=== PATIENT | female | born 1945 | race Caucasian/White ===

== ENCOUNTER 2017-06-15 20:46 | Inpatient (IN) | payer OTHER, BC ==
--- NOTE | 2017-06-15 20:56 | PDOC ---
History of Present Illness <Mariya Cardoza - Last Filed: 06/15/17 21:43> - History of Present Illness Initial Comments: 06/15/17 21:12 Mr. Umaña is a 72 yo male w/ pmh of HLD, HTN, and thyroid removal who presents c/o a 1 day history of difficulty breathing. She reports that she started a new medication yesterday for a UTI (bactrim) and noticed some skin itching after it for which she took a benadryl. She took another bactrim this AM and this is when the difficulty breathing started. She took another benadryl this AM and noticed her symptoms increase throughout the day. She presents tonight as she is now having difficutly swallowing as well. The patient denies chest pain, headache and dizziness. Denies fever, chills, nausea, vomit, diarrhea and constipation. Allergies: No drug allergies known previously. <Jono Connor - Last Filed: 06/15/17 21:56> - General Chief Complaint: Allergic Reaction Stated Complaint: DIFF BREATHING- ALLERGIC REACTION Time Seen by Provider: 06/15/17 20:56 Past History <Mariya Cardoza - Last Filed: 06/15/17 21:43> - Past Medical History COPD: Yes Diabetes: Yes GI Disorders: Yes (ACID REFLUX) HTN: Yes Hypercholesterolemia: Yes - Surgical History Abdominal Surgery: Yes Appendectomy: Yes Cholecystectomy: Yes - Suicide/Smoking/Psychosocial Hx Smoking History: Former smoker Have you smoked in the past 12 months: No If you are a former smoker, when did you quit?: 2008 Information on smoking cessation initiated: No Hx Alcohol Use: No Drug/Substance Use Hx: No Substance Use Type: None <Jono Connor - Last Filed: 06/15/17 21:56> - Past Medical History Allergies/Adverse Reactions: Allergies Allergy/AdvReac Type Severity Reaction Status Date / Time No Known Allergies Allergy Verified 06/15/17 20:51 Home Medications: Ambulatory Orders Cholecalciferol (Vitamin D3) [Vitamin D] 2,000 unit PO DAILY 07/30/13 Esomeprazole Mag Trihydrate [Nexium] 20 mg PO DAILY 07/30/13 Folic Acid - 1 mg PO DAILY 07/30/13 Meclizine HCl [Antivert -] 25 mg PO PRN 07/30/13 Metformin HCl [Glucophage -] 500 mg PO DAILY 07/30/13 Pitavastatin Calcium [Livalo] 2 mg PO DAILY 07/30/13 Ubidecarenone/Vitamin E [Co Q-10 50 mg Softgel] 1 each PO DAILY 07/30/13 Albuterol Sulfate [Proventil HFA Inhaler -] 1 - 2 inh PO TID 04/22/16 Losartan Potassium 100 mg PO DAILY 04/22/16 Diphenhydramine [Benadryl -] 50 mg PO ASDIR 06/15/17 Risedronate Sodium [Actonel (Monthly)] 150 mg PO Q30D 06/15/17 Review of Systems - Review of Systems Comments:: 06/15/17 21:17 GENERAL/CONSTITUTIONAL: No fever or chills. No weakness. HEAD, EYES, EARS, NOSE AND THROAT: +Says she feels like her throat is closing up CARDIOVASCULAR: No chest pain RESPIRATORY: +Some shortness of breath described GASTROINTESTINAL: No nausea, vomiting, diarrhea or constipation. GENITOURINARY: No dysuria, frequency, or change in urination. MUSCULOSKELETAL: No joint or muscle swelling or pain. No neck or back pain. SKIN: No rash NEUROLOGIC: No headache, vertigo, loss of consciousness, or change in strength/ sensation. ENDOCRINE: No increased thirst. No abnormal weight change HEMATOLOGIC/LYMPHATIC: No anemia, easy bleeding, or history of blood clots. ALLERGIC/IMMUNOLOGIC: +itching / rash described to arms/face <Jono Connor - Last Filed: 06/15/17 21:56> *Physical Exam - Vital Signs Last Vital Signs Temp Pulse Resp BP Pulse Ox 98 F 90 18 142/70 100 06/15/17 20:52 06/15/17 20:52 06/15/17 20:52 06/15/17 20:52 06/15/17 21:00 <Mariya Cardoza - Last Filed: 06/15/17 21:43> - Vital Signs Last Vital Signs Temp Pulse Resp BP Pulse Ox 98 F 90 18 142/70 98 06/15/17 20:52 06/15/17 20:52 06/15/17 20:52 06/15/17 20:52 06/15/17 20:52 - Physical Exam Comments: 06/15/17 21:19 GENERAL: Awake, alert, and fully oriented, in no acute distress HEAD: No signs of trauma, normocephalic, atraumatic EYES: PERRLA, EOMI, sclera anicteric, conjunctiva clear ENT: +Oropharynx appears swollen and erythematous NECK: Normal ROM, supple, no lymphadenopathy, JVD, or masses LUNGS: +Tightness noted to lung bases bilaterally HEART: Regular rate and rhythm, normal S1 and S2, no murmurs, rubs or gallops, peripheral pulses normal and equal bilaterally. ABDOMEN: Soft, nontender, normoactive bowel sounds. No guarding, no rebound. No masses EXTREMITIES: Normal inspection, Normal range of motion, no edema. No clubbing or cyanosis. NEUROLOGICAL: Cranial nerves II through XII grossly intact. Normal speech, normal gait, no focal sensorimotor deficits SKIN: Hives noted to arms bilaterally <Jono Connor - Last Filed: 06/15/17 21:56> ED Treatment Course - LABORATORY CBC & Chemistry Diagram: 06/15/17 21:00 06/15/17 21:00 - ADDITIONAL ORDERS Additional order review: 06/15/17 21:00 RBC 4.36 MCV 88.6 MCHC 34.3 RDW 12.7 MPV 8.4 Neutrophils % 66.8 Lymphocytes % 23.7 Monocytes % 7.0 Eosinophils % 1.9 Basophils % 0.6 - Medications Given in the ED: ED Medications Discontinued Medications Generic Name Dose Route Start Last Admin Trade Name Freq PRN Reason Stop Dose Admin Diphenhydramine HCl 50 mg 06/15/17 21:04 06/15/17 21:16 Benadryl Injection - IVPUSH 06/15/17 21:05 50 mg ONCE ONE Administration Methylprednisolone Sodium Succinate 125 mg 06/15/17 21:04 06/15/17 21:16 Solu-Medrol - IVPUSH 06/15/17 21:05 125 mg ONCE ONE Administration Ranitidine HCl 150 mg 06/15/17 21:06 06/15/17 21:16 Zantac Oral Solution - PO 06/15/17 21:07 150 mg ONCE ONE Administration <Mariya Cardoza - Last Filed: 06/15/17 21:43> - LABORATORY CBC & Chemistry Diagram: 06/15/17 21:00 06/15/17 21:00 <Jono Connor - Last Filed: 06/15/17 21:56> Medical Decision Making - Medical Decision Making 06/15/17 21:20 Patient presents w/ symptoms concerning for allergic reaction to proscribed Bactrim. Solumedrol / Benadryl given with some relief. Will admit for observation overnight. <Jono Connor - Last Filed: 06/15/17 21:56> *DC/Admit/Observation/Transfer - Discharge Dispostion Admit: Yes <Mariya Cardoza - Last Filed: 06/15/17 21:43> <Jono Connor - Last Filed: 06/15/17 21:56> Diagnosis at time of Disposition: Angioedema Qualifiers: Encounter type: initial encounter Qualified Code(s): T78.3XXA - Angioneurotic edema, initial encounter - Referrals Referrals: Sujit Montes [Non Staff, Medical] -
[2017-06-15] MEDS ORDERED: methylPREDNISolone NA SUCC 125 MG/2 ML VIAL IVPUSH ONE (21:04)
[2017-06-15] MEDS ORDERED: methylPREDNISolone NA SUCC 125 MG/2 ML VIAL ONE ×2 (21:05→21:06)
[2017-06-15] MEDS ORDERED: RANITIDINE HCL 150 MG/10 ML UNIT-DOSE PO ONE (21:06)
[2017-06-15] MEDS ORDERED: RANITIDINE HCL 150 MG TABLET (FP) ONE (21:17)
[2017-06-15 21:19] LABS: BASOPHIL 0.6 % (0-2.0); EOSINOPHIL 1.9 % (0-4.5); MCH 30.4 pg (25.7-33.7); MCHC 34.3 g/dl (32.0-36.0); MEAN CELL VOLUME 88.6 fl (80-96); MEAN PLT VOLUME 8.4 fl (7.5-11.1); NEUTROPHILS 66.8 % (42.8-82.8); PLATELET COUNT 197 K/MM3 (134-434); RDW 12.7 % (11.6-15.6); WHITE BLOOD COUNT 8.1 K/mm3 (4.0-10.0)
--- NOTE | 2017-06-15 21:33 | PDOC ---
Attending Attestation - Resident Resident Name: Jono Connor - ED Attending Attestation I have performed the following: I have examined & evaluated the patient, The case was reviewed & discussed with the resident, I agree w/resident's findings & plan - HPI HPI: 06/15/17 21:31 Pt took a 2nd bactrim this AM and felt her throat closing; she has been dealing with it hat home with benadryl; tonight she felt worsening swelling, so took a benadryl at 7PM and came to the ER. Pt has no voice changes and she feels well otherwise. - Physicial Exam PE: 06/15/17 21:32 Right soft palate swelling. Vital signs normal. - Medical Decision Making 06/15/17 21:32 Basic labs; benadryl and prednisone IV; zantac. Admit to Dr. Tejada for observation; she is aware and she is requesting another dose of solumedrol in 6 hrs. <Mariya Cardoza - Last Filed: 06/15/17 21:31> - Medical Decision Making 06/15/17 21:43 Jyoti paged via phone answering service. Dr. Tejada responded to the page and the patients case was discussed. Patient to be admitted under observation. <Aga Méndez - Last Filed: 06/15/17 21:44>
[2017-06-15 22:03] LABS: ALBUMIN 3.6 g/dl (3.4-5.0); ANION GAP 7 (8-16); BILIRUBIN,TOTAL 0.2 mg/dL (0.2-1.0); CALCIUM 8.5 mg/dL (8.5-10.1); CO2 26 mmol/L (21-32); CREATININE 1.1 mg/dL (0.55-1.02); GLUCOSE,RANDOM 146 mg/dL (74-106); SGOT/AST 15 U/L (15-37); SGPT/ALT 20 U/L (12-78); TOT PROT 6.7 g/dl (6.4-8.2)
[2017-06-15 22:04] LABS: ALK PHOS 30 U/L (45-117)
--- NOTE | 2017-06-15 23:35 | HP ---
Admitting History and Physical - Admission Chief Complaint: difficulty swallowing / diffuse itching History of Present Illness: 72 yo female w/ pmh of HLD, HTN, and thyroid removal who presents c/o a 1 day history of difficulty breathing. She reports that she started a new medication yesterday for a UTI (bactrim) and noticed some skin itching after it for which she took a benadryl. She took another bactrim this AM with re occurance of itching followed by difficulty breathing. She took another benadryl this AM and noticed her symptoms did not resolve but increased throughout the day. She presents tonight as she is now having difficultly swallowing as well. The patient denies chest pain, headache and dizziness. Denies fever, chills, nausea, vomit, diarrhea and constipation. She reports no previous hx of medical allergies History Source: Patient, Medical Record, Caregiver Limitations to Obtaining History: No Limitations - Past Medical History Cardiovascular: Yes: HTN, Hyperlipdemia Reproductive: Yes: Postmenopausal ...: No - Smoking History Smoking history: Former smoker Have you smoked in the past 12 months: No If you are a former smoker, when did you quit?: 2009 - Alcohol/Substance Use Hx Alcohol Use: No - Social History Usual Living Arrangement: Yes: With Spouse, With Significant Other ADL: Independent History of Recent Travel: No Home Medications - Allergies Allergies/Adverse Reactions: Allergies Allergy/AdvReac Type Severity Reaction Status Date / Time No Known Allergies Allergy Verified 06/15/17 20:51 - Home Medications Home Medications: Ambulatory Orders Cholecalciferol (Vitamin D3) [Vitamin D] 2,000 unit PO DAILY 07/30/13 Esomeprazole Mag Trihydrate [Nexium] 20 mg PO DAILY 07/30/13 Folic Acid - 1 mg PO DAILY 07/30/13 Meclizine HCl [Antivert -] 25 mg PO PRN 07/30/13 Metformin HCl [Glucophage -] 500 mg PO DAILY 07/30/13 Pitavastatin Calcium [Livalo] 2 mg PO DAILY 07/30/13 Ubidecarenone/Vitamin E [Co Q-10 50 mg Softgel] 1 each PO DAILY 07/30/13 Albuterol Sulfate [Proventil HFA Inhaler -] 1 - 2 inh PO TID 04/22/16 Losartan Potassium 100 mg PO DAILY 10/10/16 Diphenhydramine [Benadryl -] 50 mg PO ASDIR 06/15/17 Risedronate Sodium [Actonel (Monthly)] 150 mg PO Q30D 06/15/17 Sulfamethoxazole/Trimethoprim [Bactrim Ds -] 1 tab PO BID 06/15/17 Review of Systems - Review of Systems Constitutional: denies: Chills, Fever, Malaise, Weakness HENT: reports: Difficult Swallowing, Mouth Swelling. denies: Nasal Congestion, Throat Pain Neck: denies: Decreased ROM, Stiffness, Swollen Glands Cardiovascular: denies: Chest Pain, Edema, Palpitations Respiratory: denies: Cough, SOB on Exertion, Wheezing Gastrointestinal: reports: No Symptoms Genitourinary: reports: No Symptoms Breasts: reports: No Symptoms Reported Musculoskeletal: reports: No Symptoms Integumentary: reports: No Symptoms Neurological: reports: No Symptoms, Syncope. denies: Change in Speech, Unsteady Gait, Weakness Endocrine: reports: No Symptoms Hematology/Lymphatic: reports: No Symptoms Physical Examination Vital Signs: Vital Signs Temperature 98.1 F 06/15/17 22:27 Pulse Rate 82 06/15/17 22:27 Respiratory Rate 20 06/15/17 22:27 Blood Pressure 138/68 06/15/17 22:27 O2 Sat by Pulse Oximetry (%) 98 06/15/17 22:27 Constitutional: Yes: Cachectic, Mild Distress. No: Diaphoresis Eyes: Yes: WNL HENT: No: Drooling, Hoarseness Neck: Yes: Supple, Trachea Midline Cardiovascular: Yes: Regular Rate and Rhythm Respiratory: Yes: CTA Bilaterally. No: Accessory Muscle Use, Rhonchi, Stridor, Wheezes Gastrointestinal: Yes: Normal Bowel Sounds, Abdomen, Obese Renal/: Yes: WNL Breast(s): Yes: WNL Musculoskeletal: Yes: WNL Edema: No Peripheral Pulses: Left Radial: 1+, Right Radial: 1+, Left Doralis Pedis: 1+, Right Dorsalis Pedis: 1+, Left Femoral: 1+, Right Femoral: 1+ Integumentary: Yes: WNL Neurological: Yes: WNL, Alert, Oriented ...Motor Strength: WNL Psychiatric: Yes: Alert, Oriented Labs: CBC, BMP 06/15/17 21:00 06/15/17 21:00 Problem List - Problems (1) Angioedema Assessment/Plan: probably due to sulfa Code(s): T78.3XXA - ANGIONEUROTIC EDEMA, INITIAL ENCOUNTER Qualifiers: Encounter type: initial encounter Qualified Code(s): T78.3XXA - Angioneurotic edema, initial encounter (2) HTN (hypertension) Code(s): I10 - ESSENTIAL (PRIMARY) HYPERTENSION (3) Obesity (BMI 30-39.9) Code(s): E66.9 - OBESITY, UNSPECIFIED (4) Hyperlipemia Code(s): E78.5 - HYPERLIPIDEMIA, UNSPECIFIED
[2017-06-15] MEDS ORDERED: diphenhydrAMINE HCL 25 MG CAPSULE (FP) PO PRN (23:55)
[2017-06-16 01:09] VITALS: BMI 30.2
[2017-06-16] MEDS: DEXAMETHASONE SOD PHOSPHATE 4 MG/1 ML VIAL IVPUSH SCH ×3 (02:00→17:43)
[2017-06-16] MEDS ORDERED: methylPREDNISolone NA SUCC 125 MG/2 ML VIAL IVPUSH ONE (03:30)
[2017-06-16] MEDS: PANTOPRAZOLE 20 MG TABLET (FP) PO SCH ×2 (09:02→20:59)
--- NOTE | 2017-06-16 12:53 | EKG ---
Test Reason : Blood Pressure : / mmHG Vent. Rate : 066 BPM Atrial Rate : 066 BPM P-R Int : 178 ms QRS Dur : 084 ms QT Int : 412 ms P-R-T Axes : 040 -14 -01 degrees QTc Int : 431 ms NORMAL SINUS RHYTHM INFERIOR INFARCT , AGE UNDETERMINED ABNORMAL ECG WHEN COMPARED WITH ECG OF 30-JUL-2013 14:39, LIKELY NO SIGNIFICANT CHANGES WERE SEEN Confirmed by JAYNE NAIR MD ([id number]) on 06/16/2017 12:53:12 PM Referred By: Confirmed By:JAYNE NAIR MD
--- NOTE | 2017-06-16 21:46 | PN ---
Progress Note (short form) - Note Progress Note: indu seen and examined in her room family at bedside patient reports episode of itching followed by difficulty breathing late this afternoon Sx subsided after IV medication ( decadron), and itching alliviated with benadryl Vital Signs Period Temp Pulse Resp BP Sys/Hogan Pulse Ox Last 24 Hr 98.1 F-99.8 F 64-95 20-20 131-153/57-79 96-98 no difficulty breathing at this time comfortable last dose of decadron 2 hrs ago neck no stridor heart S1/S2 regular lungs clear bilat abd soft non tender obese ext no edema no calf tenderness CBC, BMP 06/15/17 21:00 06/15/17 21:00 Active Medications Dexamethasone Sodium Phosphate (Decadron Injection -) 4 mg IVPUSH Q8H-IV JARRED Last Admin: 06/16/17 17:43 Dose: 4 mg Diphenhydramine HCl (Benadryl -) 50 mg PO Q4H PRN PRN Reason: FOR ITCHING Pantoprazole Sodium (Protonix -) 20 mg PO BID JARRED Last Admin: 06/16/17 20:59 Dose: 20 mg # angioedema allergic reaction to sulfa reaction subsided with steroids re occurance late this afternoon will continue with decadron /PPi / benadryl today patient and family instructed in need and use of epipen after d/c # HTN will continue meds currently Bp controlled
[2017-06-17] MEDS: DEXAMETHASONE SOD PHOSPHATE 4 MG/1 ML VIAL IVPUSH SCH ×3 (02:31→17:36)
[2017-06-17] MEDS: diphenhydrAMINE HCL 25 MG CAPSULE (FP) PO PRN (05:49)
[2017-06-17 07:31] LABS: BASOPHIL 0.4 % (0-2.0); MCHC 33.8 g/dl (32.0-36.0); MEAN CELL VOLUME 88.6 fl (80-96); MEAN PLT VOLUME 8.7 fl (7.5-11.1); NEUTROPHILS 92.8 % (42.8-82.8); PLATELET COUNT 228 K/MM3 (134-434); RDW 12.7 % (11.6-15.6); WHITE BLOOD COUNT 17.7 K/mm3 (4.0-10.0)
[2017-06-17 08:16] LABS: ANION GAP 10 (8-16); CALCIUM 9.8 mg/dL (8.5-10.1); CO2 25 mmol/L (21-32); GLUCOSE,RANDOM 199 mg/dL (74-106)
[2017-06-17] MEDS: PANTOPRAZOLE 20 MG TABLET (FP) PO SCH ×2 (09:09→21:00)
[2017-06-17] MEDS: LEVOFLOXACIN 500 MG TABLET (FP) PO SCH (10:44)
--- NOTE | 2017-06-17 21:18 | PN ---
Progress Note (short form) - Note Progress Note: patient seen and examined in her room reports episodes of itching overnight and again early this am required benadryl this am comfortable recent dose of decadron given explained to patient need to continue to observe in view of persistent re occureance continue to hold all other meds Vital Signs Period Temp Pulse Resp BP Sys/Hogan Pulse Ox Last 24 Hr 98.1 F-99.8 F 64-95 20-20 131-153/57-79 96-98 no difficulty breathing at this time comfortable last dose of decadron 1 hrs ago neck no stridor heart S1/S2 regular lungs clear bilat abd soft non tender obese ext no edema no calf tenderness CBC, BMP 06/17/17 05:22 06/17/17 05:22 Active Medications Dexamethasone Sodium Phosphate (Decadron Injection -) 4 mg IVPUSH Q8H-IV JARRED Last Admin: 06/16/17 17:43 Dose: 4 mg Diphenhydramine HCl (Benadryl -) 50 mg PO Q4H PRN PRN Reason: FOR ITCHING Pantoprazole Sodium (Protonix -) 20 mg PO BID JARRED Last Admin: 06/16/17 20:59 Dose: 20 mg # angioedema allergic reaction to sulfa reaction subsided with steroids re occurance overnight in spite of 24 hrs of IV decadron will continue with decadron /PPi / benadryl today # HTN will continue meds currently Bp controlled # [facility] ordered Levaquin PO for patient today already given no U/A done at this time # elevated WBC due to steroids remains afebrile Problem List - Problems (1) Angioedema Code(s): T78.3XXA - ANGIONEUROTIC EDEMA, INITIAL ENCOUNTER Qualifiers: Encounter type: initial encounter Qualified Code(s): T78.3XXA - Angioneurotic edema, initial encounter (2) HTN (hypertension) Code(s): I10 - ESSENTIAL (PRIMARY) HYPERTENSION (3) Obesity (BMI 30-39.9) Code(s): E66.9 - OBESITY, UNSPECIFIED (4) Hyperlipemia Code(s): E78.5 - HYPERLIPIDEMIA, UNSPECIFIED
[2017-06-18] MEDS: diphenhydrAMINE HCL 25 MG CAPSULE (FP) PO PRN (01:27)
[2017-06-18] MEDS: DEXAMETHASONE SOD PHOSPHATE 4 MG/1 ML VIAL IVPUSH SCH ×2 (03:07→09:09)
[2017-06-18 07:34] LABS: ANION GAP 10 (8-16); CALCIUM 9.5 mg/dL (8.5-10.1); CO2 27 mmol/L (21-32); CREATININE 1.1 mg/dL (0.55-1.02); GLUCOSE,RANDOM 232 mg/dL (74-106)
[2017-06-18] MEDS: LEVOFLOXACIN 500 MG TABLET (FP) PO SCH (09:09)
[2017-06-18] MEDS: PANTOPRAZOLE 20 MG TABLET (FP) PO SCH (09:09)
--- NOTE | 2017-06-18 12:15 | DS ---
Physical Examination Vital Signs: Vital Signs Temperature 97.8 F 06/18/17 09:00 Pulse Rate 65 06/18/17 09:00 Respiratory Rate 18 06/18/17 09:00 Blood Pressure 177/68 06/18/17 09:00 O2 Sat by Pulse Oximetry (%) 96 06/18/17 09:00 Findings/Remarks: 72 yo female w/ pmh of HLD, HTN, and thyroid removal who presents c/o a 1 day history of difficulty breathing. She reports that she started a new medication yesterday for a UTI (bactrim) and noticed some skin itching after it for which she took a benadryl. She took another bactrim this AM with re occurance of itching followed by difficulty breathing. She took another benadryl this AM and noticed her symptoms did not resolve but increased throughout the day. She presents tonight as she is now having difficultly swallowing as well. The patient denied chest pain, headache and dinies fever, chills, nausea, vomit , diarrhea and constipation. She reports no previous hx of medical allergies Patient was admitted treated with IV decadron and benadryl PRN- contniued to have break trough sx for 48 hours --- Decadron d/c'd last night reports asymptomatic, had benadryl late last night for itching. Thia am sitting in chair comfortable no complaints. Instructed on medications and follow up at the office. She understands. Constitutional: Yes: Well Nourished, No Distress, Calm Eyes: Yes: WNL HENT: Yes: WNL, Atraumatic, Normocephalic Neck: Yes: WNL, Supple, Trachea Midline Cardiovascular: Yes: WNL, Regular Rate and Rhythm Respiratory: Yes: WNL, Regular, CTA Bilaterally Gastrointestinal: Yes: WNL, Normal Bowel Sounds, Soft Renal/: Yes: WNL Breast(s): Yes: WNL Musculoskeletal: Yes: WNL Extremities: Yes: WNL Edema: No Peripheral Pulses: Left Radial: 2+, Right Radial: 2+, Left Doralis Pedis: 2+, Right Dorsalis Pedis: 2+, Left Femoral: 2+, Right Femoral: 2+ Integumentary: Yes: WNL Neurological: Yes: Alert, Oriented ...Motor Strength: WNL Psychiatric: Yes: Alert, Oriented Labs: CBC, BMP 06/17/17 05:22 06/18/17 06:45 Discharge Summary Reason For Visit: ANGIOEDEMA Current Active Problems Angioedema (Acute) attributed to BACTRIM HTN (hypertension) (Acute) Hyperlipemia (Acute) Obesity (BMI 30-39.9) (Acute) Hospital Course: Patient was admitted and treated with IV decadron and Benadryl. She had several episodes of re-occurance during inital admission but subsided with PO benadryl. At time of d/c discussed use of epi-pen ( grand daughter "has one" - she knows "about it") instructed on when and how to use it. Condition: Improved - Instructions Referrals: Sujit Montes [Primary Care Provider] - Disposition: HOME - Home Medications Comprehensive Discharge Medication List: Ambulatory Orders ALLERGY TO BACTRIM __angioedema Cholecalciferol (Vitamin D3) [Vitamin D] 2,000 unit PO DAILY 07/30/13 Esomeprazole Mag Trihydrate [Nexium] 20 mg PO DAILY 07/30/13 Folic Acid - 1 mg PO DAILY 07/30/13 Meclizine HCl [Antivert -] 25 mg PO PRN 07/30/13 Metformin HCl [Glucophage -] 500 mg PO DAILY 07/30/13 Pitavastatin Calcium [Livalo] 2 mg PO DAILY 07/30/13 Ubidecarenone/Vitamin E [Co Q-10 50 mg Softgel] 1 each PO DAILY 07/30/13 Albuterol Sulfate [Proventil HFA Inhaler -] 1 - 2 inh PO TID 04/22/16 Losartan Potassium 100 mg PO DAILY 04/22/16 Diphenhydramine [Benadryl -] 50 mg PO ASDIR 06/15/17 Risedronate Sodium [Actonel (Monthly)] 150 mg PO Q30D 06/15/17
[2017-06-18] MEDS ORDERED: ACETAMINOPHEN 500 MG TABLET (FP) PO ONE (12:45)
[2017-06-18 13:18] VITALS: BP 166/86; PULSE 73; TEMP 98.4
== END 2017-06-18 13:23 | disposition home or self-care (01) | DRG 916 ==
LOC: JER 20:46 → UNDOADMOB 21:43 → JERBED 21:43 → INTOOBSV 21:43 → JERBED 22:52 → J4W 22:52 → OBSVTOIN 06-16 11:30
PROVIDERS: ADMIT Family Medicine; ATTEND Family Medicine
DX: T78.3XXA Angioneurotic edema, initial encounter (principal); N39.0 Urinary tract infection, site not specified; I10 Essential (primary) hypertension; E78.5 Hyperlipidemia, unspecified; E11.9 Type 2 diabetes mellitus without complications; Z79.84 Long term (current) use of oral hypoglycemic drugs; Z87.891 Personal history of nicotine dependence; E66.9 Obesity, unspecified; Z68.30 Body mass index [BMI] 30.0-30.9, adult; T37.0X5A Adverse effect of sulfonamides, initial encounter
CPT/HCPCS: 36415; 70360-TC; 71020-TC; 80048; 80053; 85025; 93005; 93010; 99282-25; G0378

== ENCOUNTER 2017-06-20 21:50 | Emergency (ER) | payer OTHER, BC ==
--- NOTE | 2017-06-20 21:54 | PDOC ---
Rapid Medical Evaluation Chief Complaint: Shortness of Breath Time Seen by Provider: 06/20/17 21:53 Medical Evaluation: Allergies Allergy/AdvReac Type Severity Reaction Status Date / Time No Known Allergies Allergy Verified 06/15/17 20:51 06/20/17 21:53 I have performed a brief in-person evaluation of this patient. The patient presents with a chief complain of: SOB x1 hour with back pruritis WAS ADMITTED FOR ANGIOEDEMA. DISCHARGED [id number] Took benadryl 50mg at 2000hrs Similar episode x5d ago for allergic rxn from sulfa med Pertinent physical exam findings: L/S CTAB pulse ox:98% I have ordered the following: CXR The patient will proceed to the ED for further evaluation. Discharge Disposition - Referrals Referrals: Sujit Montes [Primary Care Provider] - - Patient Instructions - Post Discharge Activity
[2017-06-20 21:55] VITALS: BP 179/64; PULSE 66; TEMP 97.7; BMI 28.3
[2017-06-20] MEDS ORDERED: methylPREDNISolone NA SUCC 125 MG/2 ML VIAL IVPB ONE (22:21)
[2017-06-20] MEDS ORDERED: FAMOTIDINE 20 MG/50 ML IVPB 20 MG/50 ML MG IVPB ONE ×2 (22:21→22:30)
[2017-06-20] MEDS ORDERED: methylPREDNISolone NA SUCC 125 MG/2 ML VIAL ONE (22:30)
--- NOTE | 2017-06-20 22:31 | PDOC ---
History of Present Illness <Kong Hough - Last Filed: 06/21/17 00:32> - History of Present Illness Initial Comments: 06/20/17 22:31 72 F with HLD, HTN, recent admission for allergic reaction, presenting to ER with itchiness and difficulty swallowing. Her symptoms began last Friday after taking Bactrim for a UTI. On Friday, she began to have severe hives and difficulty swallowing. She came to the ER, where she was treated for allergic reaction and admitted. Her symptoms subsided completely upon discharge 3 days ago. However, today shortly after dinner, she began to develop itchiness in her arms and back again. She denies seeing any hives. She also notes that she feels like it is difficult for her to swallow. Denies any SOB. Denies lip or tongue swelling. <Hayden Ivy - Last Filed: 06/21/17 01:55> - General Chief Complaint: Shortness of Breath Stated Complaint: ALLERGIC REACTION/DIFF BREATHING Time Seen by Provider: 06/20/17 21:53 Past History <Kong Hough - Last Filed: 06/21/17 00:32> - Past Medical History COPD: Yes Diabetes: Yes GI Disorders: Yes (ACID REFLUX) HTN: Yes Hypercholesterolemia: Yes - Surgical History Abdominal Surgery: Yes Appendectomy: Yes Cholecystectomy: Yes - Suicide/Smoking/Psychosocial Hx Smoking History: Never smoked Have you smoked in the past 12 months: No If you are a former smoker, when did you quit?: 2008 Information on smoking cessation initiated: No Hx Alcohol Use: No Drug/Substance Use Hx: No Substance Use Type: None <Hayden Ivy - Last Filed: 06/21/17 01:55> - Past Medical History Allergies/Adverse Reactions: Allergies Allergy/AdvReac Type Severity Reaction Status Date / Time No Known Allergies Allergy Verified 06/20/17 21:55 Home Medications: Ambulatory Orders Cholecalciferol (Vitamin D3) [Vitamin D] 2,000 unit PO DAILY 07/30/13 Esomeprazole Mag Trihydrate [Nexium] 20 mg PO DAILY 07/30/13 Folic Acid - 1 mg PO DAILY 07/30/13 Meclizine HCl [Antivert -] 25 mg PO PRN 07/30/13 Pitavastatin Calcium [Livalo] 2 mg PO DAILY 07/30/13 Ubidecarenone/Vitamin E [Co Q-10 50 mg Softgel] 1 each PO DAILY 07/30/13 Albuterol Sulfate [Proventil HFA Inhaler -] 1 - 2 inh PO TID 04/22/16 Losartan Potassium 100 mg PO DAILY 04/22/16 Diphenhydramine [Benadryl Capsule -] 50 mg PO ASDIR 06/15/17 Risedronate Sodium [Actonel (Monthly)] 150 mg PO Q30D 06/15/17 Diphenhydramine HCl [Benadryl Capsule -] 50 mg PO Q4H PRN capsule 06/18/17 Diphenhydramine HCl [Benadryl Capsule -] 50 mg PO Q6H PRN capsule 06/18/17 Epinephrine [Epipen 2-Mehul] 0.3 mg IJ PRN #2 auto.injct 06/18/17 Levofloxacin [Levaquin -] 500 mg PO DAILY #3 tablet 06/18/17 Prednisone [Deltasone -] 40 mg PO DAILY #5 tablet 06/18/17 Review of Systems - Review of Systems Comments:: 06/20/17 22:39 "GENERAL/CONSTITUTIONAL: No fever or chills. No weakness. HEAD, EYES, EARS, NOSE AND THROAT: +difficulty swallowing, No change in vision. No ear pain or discharge. No sore throat. CARDIOVASCULAR: No chest pain or shortness of breath. RESPIRATORY: No cough, wheezing, or hemoptysis. GASTROINTESTINAL: No nausea, vomiting, diarrhea or constipation. GENITOURINARY: No dysuria, frequency, or change in urination. MUSCULOSKELETAL: No joint or muscle swelling or pain. No neck or back pain. SKIN: +itchiness to arms and back NEUROLOGIC: No headache, vertigo, loss of consciousness, or change in strength/ sensation. ENDOCRINE: No increased thirst. No abnormal weight change. HEMATOLOGIC/LYMPHATIC: No anemia, easy bleeding, or history of blood clots. ALLERGIC/IMMUNOLOGIC: No hives or skin allergy. " <Hayden Ivy - Last Filed: 06/21/17 01:55> *Physical Exam - Vital Signs Last Vital Signs Temp Pulse Resp BP Pulse Ox 97.7 F 66 18 179/64 99 06/20/17 21:52 06/20/17 21:52 06/20/17 21:52 06/20/17 21:52 06/20/17 21:52 <Kong Hough - Last Filed: 06/21/17 00:32> - Vital Signs Last Vital Signs Temp Pulse Resp BP Pulse Ox 97.7 F 66 18 179/64 99 06/20/17 21:52 06/20/17 21:52 06/20/17 21:52 06/20/17 21:52 06/20/17 21:52 - Physical Exam Comments: 06/20/17 22:41 "GENERAL: Awake, alert, and fully oriented, in no acute distress HEAD: No signs of trauma EYES: PERRLA, EOMI, sclera anicteric, conjunctiva clear ENT: tongue normal, uvula wnl and midline, lips normal NECK: Nontender, no stepoffs, Normal ROM, supple, no lymphadenopathy, JVD, or masses LUNGS: No stridor, Breath sounds equal, clear to auscultation bilaterally. No wheezes, and no crackles HEART: Regular rate and rhythm, normal S1 and S2, no murmurs, rubs or gallops ABDOMEN: Soft, nontender, normoactive bowel sounds. No guarding, no rebound. No masses EXTREMITIES: Normal range of motion, no edema. No clubbing or cyanosis. No cords, erythema, or tenderness NEUROLOGICAL: Cranial nerves II through XII intact. 5/5 strength and sensation in all extremities, Normal speech, normal gait SKIN: Warm, Dry, normal turgor, no rashes or lesions noted. <Hayden Ivy - Last Filed: 06/21/17 01:55> ED Treatment Course - LABORATORY CBC & Chemistry Diagram: 06/20/17 22:37 06/20/17 22:37 - ADDITIONAL ORDERS Additional order review: Laboratory Results 06/20/17 22:37 Sodium 139 Potassium 4.5 Chloride 101 Carbon Dioxide 27 Anion Gap 11 BUN 29 H D Creatinine 1.0 Creat Clearance w eGFR 54.50 Random Glucose 186 H Calcium 8.9 Total Bilirubin 0.3 D AST 17 ALT 34 D Alkaline Phosphatase 29 L Total Protein 6.8 Albumin 3.7 06/20/17 22:37 RBC 4.57 MCV 87.0 MCHC 35.3 RDW 12.7 MPV 8.5 Neutrophils % No Result Required. Lymphocytes % No Result Required. - Medications Given in the ED: ED Medications Discontinued Medications Generic Name Dose Route Start Last Admin Trade Name Herrera PRN Reason Stop Dose Admin Diphenhydramine HCl 50 mg 06/20/17 22:21 06/20/17 22:50 Benadryl Injection - IVPUSH 06/20/17 22:22 50 mg ONCE ONE Administration Famotidine/Sodium Chloride 20 mg in 50 mls @ 100 mls/hr 06/20/17 22:21 22:50 Pepcid 20 Mg Premixed Ivpb - IVPB 06/20/17 22:50 100 mls/hr ONCE ONE Administration Methylprednisolone Sodium Succinate 125 mg 06/20/17 22:21 06/20/17 22:50 Solu-Medrol - IVPB 06/20/17 22:22 125 mg ONCE ONE Administration <Kong Hough - Last Filed: 06/21/17 00:32> - LABORATORY CBC & Chemistry Diagram: 06/20/17 22:37 06/20/17 22:37 <Hayden Ivy - Last Filed: 06/21/17 01:55> Medical Decision Making - Medical Decision Making 06/21/17 00:[address] Morelos placed. Awaiting call back. 06/21/17 00:19 Dr. Morelos called into ER. Case discussed <Kong Hough - Last Filed: 06/21/17 00:32> - Medical Decision Making 06/20/17 22:42 72 F with itchiness and difficulty swallowing, likely allergic reaction. Pt with no evidence of imminent airway emergency. No stridor or wheezing on exam. Tongue and uvula with normal appearance, though pt reports subjective feeling of tongue swelling. - Labs - IV steroids, benadryl - Monitor in ER 06/21/17 01:53 Pt reassessed after 4 hours in ER. Now reports complete resolution of symptoms. Denies any sensation of tongue swelling or difficulty swallowing. Rash has resolved. Pt with no complaints at this time. Vitals normal. Clinically stable for DC at this time. <Hayden Ivy - Last Filed: 06/21/17 01:55> *DC/Admit/Observation/Transfer - Attestations Scribe Attestion: 06/21/17 00:32 Documentation prepared by Kong Hough, acting as certified ophthalmic medical technician for Hayden Ivy MD. <GianlucaKong - Last Filed: 06/21/17 00:32> - Attestations Physician Attestion: 06/21/17 01:55 I, Dr. Hayden Ivy MD, attest that this document has been prepared under my direction and personally reviewed by me in its entirety. I further attest, that it accurately reflects all work, treatment, procedures and medical decision -making performed by me. <Hayden Ivy - Last Filed: 06/21/17 01:55> Diagnosis at time of Disposition: Allergic reaction - Discharge Dispostion Disposition: HOME - Referrals Referrals: Sujit Montes [Primary Care Provider] - - Patient Instructions Printed Discharge Instructions: DI for General Allergic Reactions Additional Instructions: Continue taking the prednisone and benadryl as instructed. If you experience any tongue or lip swelling, difficulty breathing or swallowing , or any other concerning symptoms, return to the ER immediately. Otherwise, follow up with your primary doctor on Friday. - Post Discharge Activity
[2017-06-20 23:02] LABS: MCH 30.7 pg (25.7-33.7); MCHC 35.3 g/dl (32.0-36.0); MEAN PLT VOLUME 8.5 fl (7.5-11.1); PLATELET COUNT 232 K/MM3 (134-434); RDW 12.7 % (11.6-15.6); WHITE BLOOD COUNT 10.5 K/mm3 (4.0-10.0)
[2017-06-20 23:36] LABS: ALBUMIN 3.7 g/dl (3.4-5.0); ANION GAP 11 (8-16); BILIRUBIN,TOTAL 0.3 mg/dL (0.2-1.0); CALCIUM 8.9 mg/dL (8.5-10.1); CO2 27 mmol/L (21-32); GLUCOSE,RANDOM 186 mg/dL (74-106); SGPT/ALT 34 U/L (12-78); TOT PROT 6.8 g/dl (6.4-8.2)
[2017-06-20 23:37] LABS: ALK PHOS 29 U/L (45-117); SGOT/AST 17 U/L (15-37)
[2017-06-20 23:51] LABS: REACTIVE LYMPHOCYTES 3 % (0-80); TOTAL CELLS COUNTED 100
[2017-06-20 23:52] LABS: PLATELET ESTIMATE ADEQUATE
--- NOTE | 2017-06-21 21:26 | EKG ---
Test Reason : Blood Pressure : / mmHG Vent. Rate : 054 BPM Atrial Rate : 054 BPM P-R Int : 166 ms QRS Dur : 076 ms QT Int : 456 ms P-R-T Axes : 043 -11 -04 degrees QTc Int : 432 ms SINUS BRADYCARDIA MODERATE VOLTAGE CRITERIA FOR LVH, MAY BE NORMAL VARIANT BORDERLINE ECG WHEN COMPARED WITH ECG OF 15-JUN-2017 22:15, NO SIGNIFICANT CHANGE WAS FOUND Confirmed by RUBY NICHOLE, LITO ([id number]) on 06/21/2017 9:25:46 PM Referred By: Confirmed By:LITO BELTRAN MD
== END 2017-06-21 02:35 | disposition home or self-care (01) ==
LOC: JER 21:50
PROC: 3E033GC Introduction of Other Therapeutic Substance into Peripheral Vein, Percutaneous Approach (ICD-10-PCS; principal; 2017-06-20)
PROC: 3E0333Z Introduction of Anti-inflammatory into Peripheral Vein, Percutaneous Approach (ICD-10-PCS; 2017-06-20)
DX: T78.40XA Allergy, unspecified, initial encounter (principal); X58.XXXA Exposure to other specified factors, initial encounter; I10 Essential (primary) hypertension; K21.9 Gastro-esophageal reflux disease without esophagitis; J44.9 Chronic obstructive pulmonary disease, unspecified
CPT/HCPCS: 36415; 71020-TC; 80053; 85025; 93005; 93010; 96365; 96375; 99283-25